=== PATIENT | female | born 1950 | race Caucasian/White ===

== ENCOUNTER → 2016-05-10 | Outpatient (CLI) | payer BC ==
--- NOTE | 2016-05-10 12:30 | KCIC ---
Examination: MRI of the left knee without contrast. HISTORY History of anteromedial knee pain, prior history of meniscal surgery. COMPARISON None available. TECHNIQUE Multiplanar, multi sequence MR imaging of the left knee was performed without contrast FINDINGS There is mild increased signal identified in the anterior cruciate ligament likely due to mucoid degeneration. The posterior cruciate ligament appears intact. The anterior horn of the medial meniscus appears intact. There is attenuated appearance of the body of the medial meniscus with blunting of the peripheral portion of the posterior horn of the medial meniscus likely due to surgical changes. There is absence of medial portion of the posterior horn of the medial meniscus with blunting of the remaining portion peripheral portion of the medial meniscus likely prior partial meniscectomy change or a re-tear is not completely excluded. The lateral meniscus grossly appears demonstrate minimal blunting at the junction of the anterior horn and the body, probably a small radial tear. The extensor mechanism is intact. Small knee joint effusion is identified. The medial collateral ligament is intact. The lateral collateral ligamentous complex including the fibular collateral ligament, biceps femoris tendon, popliteus tendon appear intact. The medial retinaculum, lateral retinaculum appear intact. Moderate size popliteal cyst is identified. There is deep fissuring of cartilage identified in the weightbearing portion of the medial compartment. There is superficial fraying of cartilage identified in the weightbearing portion of the lateral compartment and the patellofemoral compartment. Small osteophyte formation identified in the medial, lateral, patellofemoral compartments. Small subchondral cysts identified in the medial aspect of the medial tibial plateau. IMPRESSION - Thinning of the body of the medial meniscus with blunting of the peripheral portion of the posterior horn of the medial meniscus and complete absence of the medial portion of the posterior horn of medial meniscus likely prior surgical change. A retear is not completely excluded. Correlate clinically. - The lateral meniscus grossly demonstrate minimal blunting at the junction of the anterior horn and the body, probably a small radial tear. - Moderate knee joint effusion with a moderate-sized popliteal cyst identified. - Grade 2 chondromalacia medial compartment. Grade 1 chondromalacia lateral, patellofemoral compartments. - Mild to moderate tricompartmental degenerative changes. - Mild increased signal identified in the anterior cruciate ligament likely mucoid degeneration. Electronically signed by: Gonzalez Hardy (May 10, 2016 12:28:29)
== END | disposition home or self-care (01) ==
LOC: KCIC MRI 11:37
PROVIDERS: ATTEND Orthopaedic Surgery
DX: S83.207A Unspecified tear of unspecified meniscus, current injury, left knee, initial encounter (principal)
CPT/HCPCS: 73721

== ENCOUNTER → 2017-04-26 | Outpatient (CLI) | payer BC | END | disposition home or self-care (01) | LOC: KCIC DEXA 12:50 | DX: Z12.31 Encounter for screening mammogram for malignant neoplasm of breast (principal); Z13.820 Encounter for screening for osteoporosis; E11.9 Type 2 diabetes mellitus without complications; M85.88 Other specified disorders of bone density and structure, other site; Z78.0 Asymptomatic menopausal state | CPT/HCPCS: 77063; 77067; 77080 ==

== ENCOUNTER → 2018-10-30 | Outpatient (CLI) | payer BC ==
--- NOTE | 2018-10-30 15:56 | KCIC ---
Bilateral digital screening mammograms with 3-D tomosynthesis: Reason for examination: Routine screening. Comparison is made to previous studies dated back to 01/26/2012. Bilateral mammograms in CC and oblique projections were obtained with 2-D imaging and 3-D tomosynthesis imaging on a Siemens Inspiration unit and reviewed on the workstation. Interpretation was made with the benefit of CAD. The skin and nipples show no abnormalities. No abnormal axillary lymph nodes are seen. The breast parenchyma is heterogeneously dense. (Breast density: Category C.) There continues to be a small nodular density in the 11:00 B position of the right breast which appears to be stable. There are no new dominant masses, suspicious calcifications or architectural distortion. Benign calcifications are present. Impression: No evidence of malignancy. Recommend routine screening. Your patient's mammogram demonstrates that she has dense breast tissue (breast density category C or D), which could hide abnormalities, and if she has other risk factors for breast cancer that have been identified, she might benefit from supplemental screening tests that may be suggested by you as her ordering physician. Dense breast tissue, in and of itself, is a relatively common condition. Therefore, this information is not provided to cause undue concern, but rather to raise your awareness and to promote discussion with your patient regarding the presence of other risk factors, in addition to dense breast tissue. Your patient's mammography results will be sent to her. BI-RAD Category 2: Benign. "Our facility is accredited by the [employer] Mammography [employer]." This patient's information has been entered into a reminder system for the patient to be notified with the results of her examination and a target date for the next mammogram. Electronically signed by: Rosemarie Yang MD (10/30/2018 3:53 PM) [facility]
== END | disposition home or self-care (01) ==
LOC: KCIC MAMMO 10:13
PROVIDERS: ATTEND Family Medicine
DX: Z12.31 Encounter for screening mammogram for malignant neoplasm of breast (principal); N64.89 Other specified disorders of breast
CPT/HCPCS: 77063; 77067

== ENCOUNTER → 2019-09-12 | Outpatient (CLI) | payer BC, MEDICARE ==
--- NOTE | 2019-09-12 14:48 | KCIC ---
MR of the right shoulder HISTORY: Right shoulder pain after an injury in April. TECHNIQUE: Routine multiplanar sequences are obtained. FINDINGS: Acromioclavicular joint is degenerative. Bulbous undersurface of the outer clavicle indents the supraspinatus. Rotator cuff tendinosis. Full-thickness tear across the supraspinatus tendon footprint without retraction, measures up to 1 cm AP diameter. Additional articular surface tearing of the more posterior supraspinatus. Subscapularis tendinosis without high-grade tear. Mild fluid in the subdeltoid bursa. Mild rotator cuff muscle atrophy. Small amount of glenohumeral joint fluid. Mild heterogeneous signal within the posterosuperior labrum compatible with degeneration. No clear-cut labral detachment or separation. No acute articular cartilage defect or advanced DJD. The biceps tendon demonstrates slight medial shift but is intact. No acute fracture. No aggressive bone destruction. No acute soft tissue abnormality. IMPRESSION: 1. Small full-thickness rotator cuff tear of the supraspinatus tendon footprint, without retraction. Slight subdeltoid bursal fluid or bursitis. 2. Posterosuperior labral degeneration. Electronically signed by: Ulysses Adrian MD (09/12/2019 2:45 PM) [id number]
== END ==
LOC: KCIC MRI 12:34
PROVIDERS: ATTEND Nurse Practitioner Family
DX: M75.121 Complete rotator cuff tear or rupture of right shoulder, not specified as traumatic (principal)
CPT/HCPCS: 73221

== ENCOUNTER → 2020-01-14 | Outpatient (CLI) | payer BC ==
--- NOTE | 2020-01-14 19:24 | KCIC ---
Bilateral digital screening mammograms with 3-D tomosynthesis: Reason for examination: Routine screening. Comparison is made to previous studies dated back to 02/05/2014. Bilateral mammograms in CC and oblique projections were obtained with 2-D imaging and 3-D tomosynthesis imaging on a Siemens Inspiration unit and reviewed on the workstation. Interpretation was made with the benefit of CAD. The skin and nipples show no abnormalities. No abnormal axillary lymph nodes are seen. The breast parenchyma shows scattered fatty and fibroglandular density. (Breast density: Category B.) There continues to be a nodular density at the 11:00 B position of the right breast which is stable. There are no new dominant masses, suspicious calcifications or architectural distortion. Benign calcifications are present. Impression: No evidence of malignancy. Recommend routine screening. BI-RAD Category 2: Benign. "Our facility is accredited by the [employer] Mammography [employer]." This patient's information has been entered into a reminder system for the patient to be notified with the results of her examination and a target date for the next mammogram. Electronically signed by: Rosemarie Yang MD (01/14/2020 7:21 PM) [id number]
== END ==
LOC: KCIC MAMMO 12:57
PROVIDERS: ATTEND Nurse Practitioner Family
DX: Z12.31 Encounter for screening mammogram for malignant neoplasm of breast (principal); N64.89 Other specified disorders of breast
CPT/HCPCS: 77063; 77067

== ENCOUNTER → 2021-06-10 | Outpatient (CLI) | payer BC ==
--- NOTE | 2021-06-10 14:09 | KCIC ---
EXAM: DUAL ENERGY X-RAY ABSORPTIOMETRY (DEXA). HISTORY: Postmenopausal screening. FINDINGS: The lowest measured T-score is -1.8 in the lumbar spine, based on a bone mineral density of 0.853 g/cm^2. Refer to the worksheets for full detail. There has been a 2.4 percent increase in density of the lumbar spine and 3.9 percent decrease in dens ity of the left hip compared to a study performed 04/26/2017. IMPRESSION: 1. Low bone mass. Bone mineral density yields a T-score between -1.0 and -2.5. Fracture risk is incre ased. 2. FRAX report: Not calculated. METHODOLOGY: Dual energy x-ray absorptiometry was performed to measure bone mineral density. The foll owing analysis is based on the 2019 Official Positions of the International Society for Clinical Dens itometry: Measurements of the hips and the average of L1-L4 are preferred. When the spine and/or hip cannot be feasibly measured or interpreted, or in the setting of hyperparathyroidism, distal radial bone minera l density may be measured. The lumbar spine T-score is based on the average bone mineral density of L1-L4. In the setting of art ifact or anatomic abnormality, some lumbar levels may be excluded, and the remaining levels used for calculation. A single lumbar level is not used for diagnosis, and if only a single level is available for assessment, another anatomic site will be used to assign a diagnosis. The hip T-score is based on the bone mineral density measurement of the femoral neck or total proxima l femur of either side, whichever is lowest. Bilateral mean values are not used for diagnosis. The forearm T-score is derived from 33% of the distal radius of the nondominant forearm. Electronically signed by: Kori Arredondo MD (06/10/2021 2:07 PM) [id number]
--- NOTE | 2021-06-10 15:12 | KCIC ---
Bilateral digital screening mammograms with 3-D tomosynthesis: Reason for examination: Routine screening. Comparison is made to previous studies dated back to 01/13/2016. Bilateral mammograms in CC and oblique projections were obtained with 2-D imaging and 3-D tomosynthes is imaging on a Siemens Inspiration unit and reviewed on the workstation. Interpretation was made mary valenzuela the benefit of CAD. The skin and nipples show no abnormalities. No abnormal axillary lymph nodes are seen. The breast par enchyma is heterogeneously dense. (Breast density: Category C.) There continues to be a circumscribed nodular density at the 10:00 position anteriorly in the right breast which is stable. There are no n ew dominant masses, suspicious calcifications or architectural distortion. Benign calcifications are present. Impression: No evidence of malignancy. Recommend routine screening. Your patient's mammogram demonstrates that she has dense breast tissue (breast density category C or D), which could hide abnormalities, and if she has other risk factors for breast cancer that have bee n identified, she might benefit from supplemental screening tests that may be suggested by you as her ordering physician. Dense breast tissue, in and of itself, is a relatively common condition. Therefo re, this information is not provided to cause undue concern, but rather to raise your awareness and t o promote discussion with your patient regarding the presence of other risk factors, in addition to d ense breast tissue. Your patient's mammography results will be sent to her. BI-RAD Category 2: Benign. "Our facility is accredited by the [employer] Mammography Program." This patient's information has been entered into a reminder system for the patient to be notified wit h the results of her examination and a target date for the next mammogram. Electronically signed by: Rosemarie Yang MD (06/10/2021 3:09 PM) [email or web address]
== END ==
LOC: KCIC MAMMO 12:54
PROVIDERS: ATTEND Nurse Practitioner Family
DX: Z12.31 Encounter for screening mammogram for malignant neoplasm of breast (principal); M85.88 Other specified disorders of bone density and structure, other site
CPT/HCPCS: 77063; 77067; 77080